=== PATIENT | male | born 1985 | race African-American/Black ===

== ENCOUNTER 2017-11-16 12:21 | Emergency (ER) | payer MEDICAID ==
[~2017-11-16] VITALS: Ht 190.5 cm; Wt 80.0 kg
[2017-11-16 16:28] LABS: CHLORIDE 98 mEq/L (98-107)
[2017-11-16 16:34] LABS: HEMATOCRIT. 46.4 % (42.0-52.0); MEAN CORPUSCULAR HEMOGLOBIN 30.6 pg (28.0-32.0); MEAN CORPUSCULAR VOLUME 88.6 fL (80.0-94.0); MEAN PLATELET VOLUME 9.3 fl (7.4-10.4); PLATELET 174 x1000/uL (130-400); RED BLOOD CELL COUNT 5.24 mill/uL (4.7-6.1); RED CELL DISTRIBUTION WIDTH 13.1 % (11.6-14.6)
[2017-11-16 16:37] LABS: CARBON DIOXIDE 25 mEq/L (21-32)
[2017-11-16 18:06] LABS: PLATELET ESTIMATE NORMAL
[2017-11-16 18:15] VITALS: BP 129/85
[2017-11-16] MEDS ORDERED: KETOROLAC 30MG/ML VIAL IV ONE (18:15)
[2017-11-16] MEDS ORDERED: SODIUM CHLORIDE 0.9% 1,000 ML IV ONE (18:15)
== END 2017-11-16 19:39 | disposition home or self-care (01) ==
LOC: ER 13:33
DX: R07.89 Other chest pain (principal); E86.0 Dehydration; Z98.890 Other specified postprocedural states
CPT/HCPCS: 36415; 71045; 80053; 85025; 93005; 96361; 96374; 99285; J1885; J7030

== ENCOUNTER 2023-06-08 15:01 | Emergency (ER) | payer SELFPAY ==
[~2023-06-08] VITALS: Ht 190.5 cm; Wt 92.0 kg
[2023-06-08 15:07] VITALS: O2SAT 100
[2023-06-08 17:04] LABS: HEMATOCRIT. 39.9 % (42.0-52.0); HEMOGLOBIN. 13.8 g/dL (14.0-18.0); MEAN CORPUSCULAR HEMOGLOBIN 31.1 pg (28.0-32.0); MEAN CORPUSCULAR VOLUME 89.5 fL (80.0-94.0); MEAN PLATELET VOLUME 8.6 fl (7.4-10.4); PLATELET 187 x1000/uL (130-400); RED BLOOD CELL COUNT 4.46 mill/uL (4.7-6.1)
[2023-06-08 17:15] LABS: CHLORIDE 108 mEq/L (98-107)
[2023-06-08 17:45] LABS: PLATELET ESTIMATE NORMAL
[2023-06-08 18:15] VITALS: BP 128/71; PULSE 83; RESP 12; TEMP 99.1
[2023-06-08] MEDS ORDERED: ACETAMINOPHEN 325MG TABLET PO ONE (18:15)
[2023-06-08] MEDS ORDERED: IBUPROFEN 400MG TABLET PO ONE (18:15)
[2023-06-08] MEDS ORDERED: SODIUM CHLORIDE 0.9% 1,000 ML IV ONE (18:30)
[2023-06-08 18:45] LABS: CLARITY URINE CLEAR (CLEAR); COLOR URINE YELLOW (YELLOW); KETONES URINE TRACE (NEGATIVE); LEUKOCYTE ESTERASE URINE NEGATIVE (NEGATIVE); NITRITE URINE NEGATIVE (NEGATIVE); OCCULT BLOOD URINE NEGATIVE (NEGATIVE); PH URINE 5.5 (4.5-8.0); PROTEIN URINE 2+ (NEGATIVE); SPECIFIC GRAVITY URINE 1.012 (1.005-1.030); UROBILINOGEN URINE 0.2 E.U./dL (0.2-1.0)
[2023-06-08] MEDS ORDERED: TOPUD PO (19:02)
[2023-06-08] MEDS ORDERED: IBUP-2028 MT (19:02)
== END 2023-06-08 19:23 | disposition home or self-care (01) ==
LOC: ER 15:01
DX: U07.1 COVID-19 (principal); F12.10 Cannabis abuse, uncomplicated; M79.10 Myalgia, unspecified site; Z20.822 Contact with and (suspected) exposure to COVID-19
CPT/HCPCS: 99284; 71045; 87426; 80053; 81003; 83690; 85025; 36415; J7030; C9803

== ENCOUNTER 2023-06-21 17:50 | Emergency (ER) | payer SELFPAY ==
[~2023-06-21] VITALS: Ht 175.3 cm; Wt 80.0 kg
[~2023-06-21 17:50] MED LIST: IBUP-2028 MT; TOPUD PO
[2023-06-21 17:59] VITALS: BP 126/86; PULSE 61; RESP 18; TEMP 97.8; O2SAT 100
[2023-06-21 19:41] LABS: PROTHROMBIN TIME 10.6 sec (9.6-11.0)
[2023-06-21 19:54] LABS: ETHANOL BLOOD < 10 mg/dL (-10); TROPONIN I HIGH SENSITIVITY 7 ng/L (<78)
[2023-06-21 20:39] LABS: BASOPHILS % 0.4 % (0.0-2.0); HEMATOCRIT. 39.7 % (42.0-52.0); HEMOGLOBIN. 13.5 g/dL (14.0-18.0); LYMPHOCYTES % 24.2 % (20.0-50.0); MEAN CORPUSCULAR HEMOGLOBIN 31.1 pg (28.0-32.0); MEAN CORPUSCULAR HGB CONC 34.1 g/dL (31.0-37.0); MEAN PLATELET VOLUME 8.5 fl (7.4-10.4); MONOCYTES % 11.8 % (2.0-8.0); NEUTROPHILS % 62.6 % (40.0-76.0); PLATELET 398 x1000/uL (130-400); RED BLOOD CELL COUNT 4.36 mill/uL (4.7-6.1); RED CELL DISTRIBUTION WIDTH 12.7 % (11.6-14.6); WHITE BLOOD COUNT 8.3 x1000/uL (4.5-11.0)
[2023-06-21 20:51] LABS: CHLORIDE 108 mEq/L (98-107); INDEX HEMOLYSI 1 (1-3); INDEX ICTERIC 1 (1-4); INDEX LIPEMIC 1 (1-3); POTASSIUM 4.5 mEq/L (3.5-5.1); SODIUM 139 mEq/L (136-145)
[2023-06-21 20:58] LABS: ALANINE AMINOTRANSFERASE 31 IU/L (13-61); ALBUMIN 3.1 g/dL (3.4-5.0); ASPARTATE AMINOTRANSFERASE 24 IU/L (15-37); BILIRUBIN TOTAL 0.2 mg/dL (0.1-1.0); CALCIUM 8.7 mg/dL (8.5-10.1); CARBON DIOXIDE 25 mEq/L (21-32); CREATININE 1.8 mg/dL (0.6-1.3); GLUCOSE 88 mg/dL (70-105); PROTEIN TOTAL 7.5 g/dL (6.0-8.3); UREA NITROGEN BLOOD 22 mg/dL (7-21)
[2023-06-21] MEDS ORDERED: SODIUM CHLORIDE 0.9% 1,000 ML IV ONE (21:15)
== END 2023-06-22 08:43 | disposition home or self-care (01) ==
LOC: ER 17:50
DX: N17.9 Acute kidney failure, unspecified (principal); U07.1 COVID-19; F12.10 Cannabis abuse, uncomplicated
CPT/HCPCS: 80053; 80320; 85025; 85610; 84484; 36415; 71045; 93005; 96360; 99285; J7030; G0480